=== PATIENT | male | born 1980 | race Caucasian/White ===

== ENCOUNTER 2018-06-07 09:45 | Inpatient (IN) | payer BC ==
--- NOTE | 2018-06-07 11:17 | ED ---
General Adult HPI - General Chief complaint: Altered Mental Status Stated complaint: EPS eval Time Seen by Provider: 06/07/18 10:00 Source: patient, RN notes reviewed Mode of arrival: ambulatory Limitations: no limitations - History of Present Illness Initial comments: This is a 38-year-old male presents emergency Department complaining of being more anxious lately. Patient states she's also thinking of hurting himself even though he doesn't want to he does think about taking pills or driving his car into a tree. Patient's not sure why that it feels to because he doesn't want to but he does feel as though somehow hurting himself might be better. Patient denies any thoughts of homicide. Patient states he's coming in because he's got 3 kids and he doesn't want to get to the point where he wants to harm himself. Patient states and 15 he did try to commit suicide by taking pills. Patient denies any drinking or drug use today. Patient denies any physical complaints today. - Related Data Home Medications Medication Instructions Recorded Confirmed buPROPion HCL [Wellbutrin XL] 150 mg PO BID 06/07/18 06/07/18 busPIRone HCl [Buspar] 10 mg PO TID 06/07/18 06/07/18 Allergies Allergy/AdvReac Type Severity Reaction Status Date / Time Penicillins Allergy Unknown Verified 06/07/18 10:47 Review of Systems ROS Statement: Those systems with pertinent positive or pertinent negative responses have been documented in the HPI. ROS Other: All systems not noted in ROS Statement are negative. Past Medical History Past Medical History: No Reported History History of Any Multi-Drug Resistant Organisms: None Reported Past Surgical History: Orthopedic Surgery Additional Past Surgical History / Comment(s): knee Past Psychological History: Depression Smoking Status: Current every day smoker Past Alcohol Use History: Occasional Past Drug Use History: Marijuana General Exam - General Exam Comments Initial Comments: GENERAL: Patient is well-developed and well-nourished. Patient is nontoxic and well- hydrated and is in no acute distress. ENT: Neck is soft and supple. Neck has full range of motion without eliciting any pain. EYES: The sclera were anicteric and conjunctiva were pink and moist. Extraocular movements were intact and pupils were equal round and reactive to light. Eyelids were unremarkable. PULMONARY: Unlabored respirations. Good breath sounds bilaterally. No audible rales rhonchi or wheezing was noted. CARDIOVASCULAR: There is a regular rate and rhythm without any murmurs gallops or rubs. ABDOMEN: Soft and nontender with normal bowel sounds. SKIN: Skin is clear with no lesions or rashes and otherwise unremarkable. NEUROLOGIC: Patient is alert and oriented x3. Cranial nerves II through XII are grossly intact. Motor and sensory are also intact. Normal speech, volume and content. Symmetrical smile. MUSCULOSKELETAL: Normal extremities with adequate strength and full range of motion. PSYCHIATRIC: Patient does admit that he wants to harm himself and is worrisome to become suicidal. Patient states been very depressed lately and extremely anxious. Patient states his BuSpar is helping him with his anxiety but not helping him with his depression. Limitations: no limitations Course Vital Signs 06/07/18 09:55 Temperature 98.4 F Pulse Rate 78 Respiratory 18 Rate Blood Pressure 127/79 O2 Sat by Pulse 100 Oximetry Medical Decision Making - Medical Decision Making EPS evaluated the patient decided to admit the patient for depression . Disposition Clinical Impression: Depression, Thoughts of self harm Disposition: ADMITTED IP TO THIS HOSP Referrals: Pierre Goetz MD [Primary Care Provider] - 1-2 days Time of Disposition: 14:16
[2018-06-07 14:49] LABS: Amphetamine Screen,Urine Not Detected (NotDetected); Benzodiazepines Screen,Urine Not Detected (NotDetected); Cocaine Screen,Urine Not Detected (NotDetected); Methadone Screen, Urine Not Detected (NotDetected); Opiate Screen,Urine Not Detected (NotDetected); Phencyclidine Screen,Urine Not Detected (NotDetected); Tricyclic Antidepressant,Urine Not Detected (NotDetected); Urn Cannabinoid Scrn Detected (NotDetected)
[2018-06-07 14:50] LABS: Barbiturate Screen,Urine Not Detected (NotDetected); Oxycodone Screen, Urine Not Detected (NotDetected)
[2018-06-07] MEDS ORDERED: LORazepam 1 MG TAB PO PRN (14:56)
[2018-06-07] MEDS ORDERED: MAGNESIUM HYDROXIDE 2,400 MG/10 ML CUP PO PRN (14:56)
[2018-06-07] MEDS ORDERED: ACETAMINOPHEN TAB 325 MG TAB PO PRN (14:56)
[2018-06-07] MEDS ORDERED: MAG HYDROX/AL HYDROX/SIMETH 30 ML CUP PO PRN (14:56)
[2018-06-07] MEDS ORDERED: ZIPRASIDONE 20 MG VIAL IM PRN (14:56)
[2018-06-07] MEDS ORDERED: LORazepam 2 MG/ML INJ IM PRN (14:59)
[2018-06-07] MEDS: NICOTINE 14MG/24HR PATCH TRANSDERM SCH (15:56)
[2018-06-07] MEDS: busPIRone HCl 10 MG TAB PO SCH ×2 (15:56→19:54)
[2018-06-07 17:11] VITALS: BMI 22.4
[2018-06-07] MEDS: buPROPion XL 150 MG TAB.ER.24H PO SCH (19:54)
[2018-06-08] MEDS: busPIRone HCl 10 MG TAB PO SCH (09:00)
[2018-06-08] MEDS: buPROPion XL 150 MG TAB.ER.24H PO SCH (09:00)
[2018-06-08] MEDS: NICOTINE 14MG/24HR PATCH TRANSDERM SCH (09:01)
[2018-06-08 09:47] LABS: ALT 33 U/L (21-72); AST 26 U/L (17-59); Albumin 5.3 g/dL (3.5-5.0); Alkaline Phosphatase 59 U/L (38-126); Anion Gap 10 mmol/L; Blood Urea Nitrogen 19 mg/dL (9-20); Calcium 10.6 mg/dL (8.4-10.2); Carbon Dioxide 29 mmol/L (22-30); Chloride 103 mmol/L (98-107); Cholesterol 250 mg/dL (<200); Glucose 121 mg/dL (74-99); HDL Cholesterol 52 mg/dL (40-60); LDL Cholesterol,Calculated 181 mg/dL (0-99); Sodium 142 mmol/L (137-145); Total Bilirubin 1.5 mg/dL (0.2-1.3); Total Protein 8.5 g/dL (6.3-8.2); Triglycerides 86 mg/dL (<150)
[2018-06-08 10:46] LABS: Basophils % (A) 1 %; Eosinophils # (A) 0.2 k/uL (0-0.7); Eosinophils % (A) 3 %; HGB 17.7 gm/dL (13.0-17.5); Lymphocytes % (A) 26 %; MCH 31.4 pg (25.0-35.0); MCV 92.3 fL (80.0-100.0); Mean Platelet Volume 6.7; Monocytes # (A) 0.6 k/uL (0-1.0); Monocytes % (A) 7 %; Neutrophils # (A) 4.7 k/uL (1.3-7.7); Neutrophils % (A) 61 %; Platelet Count 279 k/uL (150-450); RBC 5.63 m/uL (4.30-5.90); RDW 13.8 % (11.5-15.5); WBC 7.7 k/uL (3.8-10.6)
--- NOTE | 2018-06-08 11:14 | CONS ---
CONSULTATION CHIEF COMPLAINT: Major depression. HISTORY OF PRESENT ILLNESS: This is another admission for this 38-year-old white male. He has had some problems with depression. It started to get gradually worse and he began to have suicidal thoughts and came to the emergency room. He did not try to hurt himself. Has otherwise been healthy. REVIEW OF SYSTEMS: He has had no headaches, neurologic problems, change in vision or hearing, chest pain, cough, hemoptysis, murmurs, rheumatic fever, hypertension, abdominal pain, nausea, vomiting, hematemesis, melena, hematochezia, jaundice, renal failure, diabetes, etc. PAST MEDICAL HISTORY. FAMILY HISTORY, PERSONAL AND SOCIAL HISTORY: Unremarkable otherwise. He is on Wellbutrin 150 twice a day and is allergic to PENICILLIN. Surgically, he has had hemorrhoidectomy and a procedure on his right knee. He does smoke. PHYSICAL EXAM: Blood pressure 118/68 with a pulse 66, respirations 14. He is afebrile. In general, he appeared to be well developed, well nourished, in no acute distress. Skin color is normal, skin is warm, dry. Lymph nodes are not enlarged. Head, ears, eyes, nose, mouth, and throat were normal. Neck veins are not distended. Thyroid is not enlarged. Chest is clear and cardiac exam is normal. The abdomen is soft, nontender. EXTREMITIES: Normal. Neurologically, he is intact. IMPRESSION: Major depression. RECOMMENDATIONS: None at this time. MMODL / IJN: [id number] /
--- NOTE | 2018-06-08 11:25 | P.HP ---
Psychiatric H&P - . H&P Date: 06/08/18 History & Physical: Allergies Allergy/AdvReac Type Severity Reaction Status Date / Time Penicillins Allergy Unknown Verified 06/07/18 10:47 Vital Signs Temp 97.5 F L 06/08/18 06:46 Pulse 69 06/08/18 06:46 Resp 18 06/08/18 06:46 BP 132/75 06/08/18 06:46 Pulse Ox 99 06/07/18 15:34 Intake & Output 06/07/18 06/08/18 06/08/18 18:59 06:59 18:59 Weight 77.3 kg Laboratory Last Values Sodium 142 mmol/L (137-145) 06/08/18 09:03 Potassium 5.0 mmol/L (3.5-5.1) 06/08/18 09:03 Chloride 103 mmol/L (98-107) 06/08/18 09:03 Carbon Dioxide 29 mmol/L (22-30) 06/08/18 09:03 Anion Gap 10 mmol/L 06/08/18 09:03 BUN 19 mg/dL (9-20) 06/08/18 09:03 Creatinine 0.99 mg/dL (0.66-1.25) 06/08/18 09:03 Est GFR (CKD-EPI)AfAm >90 (>60 ml/min/1.73 sqM) 06/08/18 09:03 Est GFR (CKD-EPI)NonAf >90 (>60 ml/min/1.73 sqM) 06/08/18 09:03 Glucose 121 mg/dL (74-99) H 06/08/18 09:03 Calcium 10.6 mg/dL (8.4-10.2) H 06/08/18 09:03 Total Bilirubin 1.5 mg/dL (0.2-1.3) H 06/08/18 09:03 AST 26 U/L (17-59) 06/08/18 09:03 ALT 33 U/L (21-72) 06/08/18 09:03 Alkaline Phosphatase 59 U/L (38-126) 06/08/18 09:03 Total Protein 8.5 g/dL (6.3-8.2) H 06/08/18 09:03 Albumin 5.3 g/dL (3.5-5.0) H 06/08/18 09:03 Triglycerides 86 mg/dL (<150) 06/08/18 09:03 Cholesterol 250 mg/dL (<200) H 06/08/18 09:03 LDL Cholesterol, Calc 181 mg/dL (0-99) H 06/08/18 09:03 HDL Cholesterol 52 mg/dL (40-60) 06/08/18 09:03 Urine Opiates Screen Not Detected (NotDetected) 06/07/18 14:30 Ur Oxycodone Screen Not Detected (NotDetected) 06/07/18 14:30 Urine Methadone Screen Not Detected (NotDetected) 06/07/18 14:30 Ur Propoxyphene Screen Not Detected (NotDetected) 06/07/18 14:30 Ur Barbiturates Screen Not Detected (NotDetected) 06/07/18 14:30 U Tricyclic Antidepress Not Detected (NotDetected) 06/07/18 14:30 Ur Phencyclidine Scrn Not Detected (NotDetected) 06/07/18 14:30 Ur Amphetamines Screen Not Detected (NotDetected) 06/07/18 14:30 U Methamphetamines Scrn Not Detected (NotDetected) 06/07/18 14:30 U Benzodiazepines Scrn Not Detected (NotDetected) 06/07/18 14:30 Urine Cocaine Screen Not Detected (NotDetected) 06/07/18 14:30 U Marijuana (THC) Screen Detected (NotDetected) H 06/07/18 14:30 Assessment and Plan Assessment: This is a 38-year-old male presents emergency Department complaining of being more anxious lately. Patient states she's also thinking of hurting himself even though he doesn't want to he does think about taking pills or driving his car into a tree. Patient's not sure why that it feels to because he doesn't want to but he does feel as though somehow hurting himself might be better. Patient denies any thoughts of homicide. Patient states he's coming in because he's got 3 kids and he doesn't want to get to the point where he wants to harm himself. Patient states and 15 he did try to commit suicide by taking pills. Patient denies any drinking or drug use today. Patient denies any physical complaints today. mental health eval denies suicidal ideations recently started antidepressants pt states that he is here because he had a panic attack that began around 11am yesterday and slowly built until 2 am and he was worried that without help he would hurt himself. pt states that he took a week off of work and that on Thursday he was "iffy" and starting to grow anxious, but that Thursday he became panicked at the thought of going back to work. pt reports that yesterday he had the thought that he would rather hurt himself than return to work. pt also reports that he has seen a pattern in his symptoms where every 2-3 years he has increased symptoms and poor coping. pt states that he doesn't wish to hurt himself because he has a and children and would not want them to deal with the consequences of his suicide. pt does report that he had not been taking any medications since he did not have a primary care physician until recently due to lack of insurance. pt states that his primary care started him on Wellbutrin last week and that he has also been put on Buspar. pt reports that his Buspar w as at 5mg BID for 10 days and was increased to 10 mg recently so he has only been taking this dosage for the past weekend. pt does state that this seems to help with many anxiety symptoms but that it did not help yesterday. pt reports that he had previously attempted suicide by overdose when he was 19. pt states that he went to [facility] and had his stomach pumped, but that he was never admitted to a mental health facility for this attempt. pt denies current suicidal ideation but does report that he was concerned he might harm himself if he does not get help for his anxiety as he believes that his self- harming thoughts are tied to increased anxiety. pt does not have a plan and reports that he also did not have a plan yesterday when he had suicidal ideation. pt does state, "If somebody takes me out, that'd be fine." pt reports that he has had terrible night sweats, but that he has not been experiencing these since beginning the Buspar. pt's states that she has witnessed pt hyperventilating in his sleep at night and that pt does not remember this when she woke him. pt's reports that she has not witnessed this since pt began taking Buspar. pt reports no other sleep symptoms. pt also reports a decrease in his appetite and states that this is due to his increased anxiety.pt reports daily marijuana use and states that this sometimes helps with anxiety but also sometimes "pushes me in the other direction." pt denies any other drug use. pt does have a drink rarely. pt states that his last drink was 1 beer about 3-4 weeks ago and that he drinks maybe 4 times per year. - Related Data Home Medications Medication Instructions Recorded Confirmed buPROPion HCL [Wellbutrin XL] 150 mg PO BID 06/07/18 06/07/18 busPIRone HCl [Buspar] 10 mg PO TID 06/07/18 06/07/18 Allergies Allergy/AdvReac Type Severity Reaction Status Date / Time Penicillins Allergy Unknown Verified 06/07/18 10:47 Past Medical History Past Medical History: No Reported History History of Any Multi-Drug Resistant Organisms: None Reported Past Surgical History: Orthopedic Surgery Additional Past Surgical History / Comment(s): knee Past Psychological History: Depression Smoking Status: Current every day smoker Past Alcohol Use History: Occasional Past Drug Use History: Marijuana Musculoskeletal Examination - Abnormal/Involuntary Movements: [none Strength: [greater than antigravity (greater than/equal to 3/5) in all extremities] Muscle Tone: [no impairment Gait: [grossly normal Station: [grossly normal Mental Status Examination - this is a 38-year-old male with 3 children who came to the hospital due to the fact that he has increased anxiety about work even suicidal thoughts because he felt hopeless and helpless. He was started on Wellbutrin and BuSpar with little to no response. 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 Approximate 4 for 5 months during the winter time he was homeless. He does have an episode when he was a teenager going to [facility] for mental health issues and in his 20s took an overdose but he went to the emergency room they pumped his stomach and had no psychiatric follow-up. Family was extremely holiness. He has younger siblings that live with his father which he has little contact with. General Appearance: [casual, appears stated age Speech/Language: [spontaneous, rapid, expressive, loud, Attitude/Behavior: [cooperative,indifferent] Mood: [ depressed, anxious, fearful, hopelessness Affect: [ labile, blunted constricted Orientation: [time, person, place situation] Thought Content: [wnl, denies delusions, obsessions, phobias, other] Risk Factors: [Has episodic suicidal (ideations, plan), and/or Homicidal (ideations, plan), other] Perception: [wnl, denies hallucinations (auditory, visual, tactile), other] Thought Processes: [ concrete, circumstantial, tangential Concentration/Attention Span: [wnl] [Per observation and interview with the patient] Recent Memory: [wnl 3 out of 3 in 3 minutes] Remote Memory: [wnl] [past events, as related history] Intelligence: [ average] [based on history, based on vocabulary, syntax, grammar, and content] Judgement: [good] [per patient's behavior/history of present illness] Insight: [good [understanding severity of illness/history of present illness] Admitting Diagnosis: [Major depressive disorder severe with suicidal ideations versus bipolar affective disorder type I currently depressed and suicidal] Patient Strengths - Personal Skills: [x] Achievements: [x] Steady employment/financial stability: [x] Housing stability: [x] Able to vocalize needs: [x] Values and traditions: [x] Motivation, determination, readiness for change: [x] Setting and pursuing goals, hopes, dreams, aspirations: [x] Resources - social, interpersonal, monetary: [x] Interpersonal relationships and supports available - family, relatives, friends: [x] Patient Limitations: [medication Initial Plan of Care: [He was admitted in formal voluntary to [address] [place] [address] for suicidal thoughts and ongoing depression. He will be evaluated by medicine, psychiatry, nursing staff, social work and occupational therapy for integration in [facility]. He will be placed on 15 minute checks for safety and usual protocol for the mental health unit. We will be taken off his BuSpar and increase his Wellbutrin to 300 mg in the morning, Lamictal 25 mg by mouth daily at bedtime, Effexor 37.5 mgxr by mouth daily at bedtime. The goal of treatment will be to titrate his Lamictal to 200 mg and his Effexor to 225 mg.] Estimated Length of Stay: [5 days] Initial Discharge Plan: [home, referred to therapist Prognosis: [good] Justification for Inpatient Hospitalization - [ anxiety, depression resulting in significant loss of functioning.] [Dangerous to self need for controlled environment.] [Emotional or behavioral conditions and complications requiring 24 hour medical and nursing care.] [Need for special drug therapy, or other therapeutic program requiring continuous hospitalization.] [Failure of social or occupational functioning.] [Inability to meet basic life and health needs.] (1) Depression Current Visit: Yes Status: Acute Code(s): F32.9 - MAJOR DEPRESSIVE DISORDER, SINGLE EPISODE, UNSPECIFIED SNOMED Code(s): 82054708 Time with Patient: Greater than 30
[2018-06-08 19:08] LABS: Hemoglobin A1C 5.4 % (4.0-6.0)
[2018-06-08] MEDS ORDERED: buPROPion XL 150 MG TAB.ER.24H PO SCH (21:00)
[2018-06-08] MEDS ORDERED: lamoTRIgine 25 MG TAB PO SCH (21:00)
[2018-06-08] MEDS ORDERED: VENLAFAXINE HCL ER 37.5 MG CAP PO SCH (21:00)
[2018-06-09 06:35] VITALS: TEMP 98.1
[2018-06-09] MEDS: NICOTINE 14MG/24HR PATCH TRANSDERM SCH (07:59)
[2018-06-09] MEDS ORDERED: ONDANSETRON 4 MG TAB PO PRN (12:30)
--- NOTE | 2018-06-09 12:37 | P.PN ---
Subjective Progress Note Date: 06/09/18 Principal diagnosis: Major depressive disorder severe with suicidal ideations versus bipolar affective disorder type I currently depressed and suicidal] 06/09/2018: Chart reviewed, discussed with nursing staff medication change in times, discussed in team today regarding disposition and discharge plans. Patient interviewed in office and reflected on medications that were given last night and he will not get his Wellbutrin until 06/10/2018. He will have an increase of his affection Lamictal tonight and discuss that with him in detail. Also discussed possibility with him and discharge on Thursday. Objective - Vital Signs Vital signs: Vital Signs Temp 98.1 F 06/09/18 06:07 Pulse 87 06/09/18 06:07 Resp 14 06/09/18 06:07 BP 120/74 06/09/18 06:07 Pulse Ox 99 06/07/18 15:34 - Labs CBC & Chem 7: 06/08/18 09:03 06/08/18 09:03 Assessment and Plan Assessment: This is a 38-year-old male presents emergency Department complaining of being more anxious lately. Patient states she's also thinking of hurting himself even though he doesn't want to he does think about taking pills or driving his car into a tree. Patient's not sure why that it feels to because he doesn't want to but he does feel as though somehow hurting himself might be better. Patient denies any thoughts of homicide. Patient states he's coming in because he's got 3 kids and he doesn't want to get to the point where he wants to harm himself. Patient states and 15 he did try to commit suicide by taking pills. Patient denies any drinking or drug use today. Patient denies any physical complaints today. mental health eval denies suicidal ideations recently started antidepressants pt states that he is here because he had a panic attack that began around 11am yesterday and slowly built until 2 am and he was worried that without help he would hurt himself. pt states that he took a week off of work and that on Thursday he was "iffy" and starting to grow anxious, but that Thursday he became panicked at the thought of going back to work. pt reports that yesterday he had the thought that he would rather hurt himself than return to work. pt also reports that he has seen a pattern in his symptoms where every 2-3 years he has increased symptoms and poor coping. pt states that he doesn't wish to hurt himself because he has a and children and would not want them to deal with the consequences of his suicide. pt does report that he had not been taking any medications since he did not have a primary care physician until recently due to lack of insurance. pt states that his primary care started him on Wellbutrin last week and that he has also been put on Buspar. pt reports that his Buspar was at 5mg BID for 10 days and was increased to 10 mg recently so he has only been taking this dosage for the past weekend. pt does state that this seems to help with many anxiety symptoms but that it did not help yesterday. pt reports that he had previously attempted suicide by overdose when he was 19. pt states that he went to [facility] and had his stomach pumped, but that he was never admitted to a mental health facility for this attempt. pt denies current suicidal ideation but does report that he was concerned he might harm himself if he does not get help for his anxiety as he believes that his self- harming thoughts are tied to increased anxiety. pt does not have a plan and reports that he also did not have a plan yesterday when he had suicidal ideation. pt does state, "If somebody takes me out, that'd be fine." pt reports that he has had terrible night sweats, but that he has not been experiencing these since beginning the Buspar. pt's states that she has witnessed pt hyperventilating in his sleep at night and that pt does not remember this when she woke him. pt's reports that she has not witnessed this since pt began taking Buspar. pt reports no other sleep symptoms. pt also reports a decrease in his appetite and states that this is due to his increased anxiety.pt reports daily marijuana use and states that this sometimes helps with anxiety but also sometimes "pushes me in the other direction." pt denies any other drug use. pt does have a drink rarely. pt states that his last drink was 1 beer about 3-4 weeks ago and that he drinks maybe 4 times per year. Mental Status Examination - this is a 38-year-old male with 3 children who came to the hospital due to the fact that he has increased anxiety about work even suicidal thoughts because he felt hopeless and helpless. He was started on Wellbutrin and BuSpar with little to no response. 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 Approximate 4 for 5 months during the winter time he was homeless. He does have an episode when he was a teenager going to [facility] health issues and in his 20s took an overdose but he went to the emergency room they pumped his stomach and had no psychiatric follow-up. Family was extremely yazdanism. He has younger siblings that live with his father which he has little contact with. General Appearance: [casual, appears stated age Speech/Language: [spontaneous, rapid, expressive, loud, Attitude/Behavior: [cooperative,indifferent] Mood: [ depressed5 out of 10, anxious6 out of 10, fearful,less hopelessness Affect: [ labile, blunted constricted Orientation: [time, person, place situation] Thought Content: [wnl, denies delusions, obsessions, phobias, other] Risk Factors: [remains episodic suicidal (ideations, plan), and/or Homicidal (ideations, plan), other] Perception: [wnl, denies hallucinations (auditory, visual, tactile), other] Thought Processes: [ concrete, circumstantial, tangential Concentration/Attention Span: [wnl] [Per observation and interview with the patient] Recent Memory: [wnl 3 out of 3 in 3 minutes] Remote Memory: [wnl] [past events, as related history] Intelligence: [ average] [based on history, based on vocabulary, syntax, grammar, and content] Judgement: [good] [per patient's behavior/history of present illness] Insight: [good [understanding severity of illness/history of present illness] Admitting Diagnosis: [Major depressive disorder severe with suicidal ideations versus bipolar affective disorder type I currently depressed and suicidal] Patient Limitations: [medication Initial Plan of Care: [He was admitted in formal voluntary to [address] [place] [address] for suicidal thoughts and ongoing depression. He will be evaluated by medicine, psychiatry, nursing staff, social work and occupational therapy for integration in [facility]. He will be placed on 15 minute checks for safety and usual protocol for the mental health unit. We will be taken off his BuSpar and increase his Wellbutrin to 300 mg in the morning, Lamictal 25 mg by mouth daily at bedtime, Effexor 37.5 mgxr by mouth daily at bedtime. The goal of treatment will be to titrate his Lamictal to 200 mg and his Effexor to 225 mg.] (1) Depression Current Visit: Yes Status: Acute Code(s): F32.9 - MAJOR DEPRESSIVE DISORDER, SINGLE EPISODE, UNSPECIFIED SNOMED Code(s): 92586368 Plan: Wellbutrin 300 mg XL will be given on 06/10/2018 since was given by mistake last night at 2100 hrs. He will have an increase of Effexor 75 mg and Lamictal to 50 mg by mouth daily at bedtime. He remains on 15 minute checks and expected to integrated in [facility]. Time with Patient: Less than 30
[2018-06-09 20:32] VITALS: RESP 16
[2018-06-09] MEDS ORDERED: lamoTRIgine 25 MG TAB PO SCH (21:00)
[2018-06-09] MEDS ORDERED: VENLAFAXINE HCL ER 75 MG CAP PO SCH (21:00)
[2018-06-10 07:09] VITALS: BP 131/75; PULSE 70
[2018-06-10] MEDS: NICOTINE 14MG/24HR PATCH TRANSDERM SCH (08:47)
[2018-06-10] MEDS ORDERED: buPROPion XL 300 MG TAB.ER.24H PO SCH (09:00)
--- NOTE | 2018-06-10 12:05 | P.DS ---
Providers Date of admission: 06/07/18 14:43 Expected date of discharge: 06/10/18 Attending physician: Ozzie Amor DO Consults: 06/07/18 14:56 Consult Physician Routine Consulting Provider: Pierre Goetz Consult Reason/Comments: H&P and medical Do you want consulting provider notified?: Yes Primary care physician: Pierre Goetz - Discharge Diagnosis(es) (1) Depression Allergies Allergy/AdvReac Type Severity Reaction Status Date / Time Penicillins Allergy Unknown Verified 06/07/18 10:47 Vital Signs Temp 97.5 F L 06/08/18 06:46 Pulse 69 06/08/18 06:46 Resp 18 06/08/18 06:46 BP 132/75 06/08/18 06:46 Pulse Ox 99 06/07/18 15:34 Intake & Output 06/07/18 06/08/18 06/08/18 18:59 06:59 18:59 Weight 77.3 kg Laboratory Last Values Sodium 142 mmol/L (137-145) 06/08/18 09:03 Potassium 5.0 mmol/L (3.5-5.1) 06/08/18 09:03 Chloride 103 mmol/L (98-107) 06/08/18 09:03 Carbon Dioxide 29 mmol/L (22-30) 06/08/18 09:03 Anion Gap 10 mmol/L 06/08/18 09:03 BUN 19 mg/dL (9-20) 06/08/18 09:03 Creatinine 0.99 mg/dL (0.66-1.25) 06/08/18 09:03 Est GFR (CKD-EPI)AfAm >90 (>60 ml/min/1.73 sqM) 06/08/18 09:03 Est GFR (CKD-EPI)NonAf >90 (>60 ml/min/1.73 sqM) 06/08/18 09:03 Glucose 121 mg/dL (74-99) H 06/08/18 09:03 Calcium 10.6 mg/dL (8.4-10.2) H 06/08/18 09:03 Total Bilirubin 1.5 mg/dL (0.2-1.3) H 06/08/18 09:03 AST 26 U/L (17-59) 06/08/18 09:03 ALT 33 U/L (21-72) 06/08/18 09:03 Alkaline Phosphatase 59 U/L (38-126) 06/08/18 09:03 Total Protein 8.5 g/dL (6.3-8.2) H 06/08/18 09:03 Albumin 5.3 g/dL (3.5-5.0) H 06/08/18 09:03 Triglycerides 86 mg/dL (<150) 06/08/18 09:03 Cholesterol 250 mg/dL (<200) H 06/08/18 09:03 LDL Cholesterol, Calc 181 mg/dL (0-99) H 06/08/18 09:03 HDL Cholesterol 52 mg/dL (40-60) 06/08/18 09:03 Urine Opiates Screen Not Detected (NotDetected) 06/07/18 14:30 Ur Oxycodone Screen Not Detected (NotDetected) 06/07/18 14:30 Urine Methadone Screen Not Detected (NotDetected) 06/07/18 14:30 Ur Propoxyphene Screen Not Detected (NotDetected) 06/07/18 14:30 Ur Barbiturates Screen Not Detected (NotDetected) 06/07/18 14:30 U Tricyclic Antidepress Not Detected (NotDetected) 06/07/18 14:30 Ur Phencyclidine Scrn Not Detected (NotDetected) 06/07/18 14:30 Ur Amphetamines Screen Not Detected (NotDetected) 06/07/18 14:30 U Methamphetamines Scrn Not Detected (NotDetected) 06/07/18 14:30 U Benzodiazepines Scrn Not Detected (NotDetected) 06/07/18 14:30 Urine Cocaine Screen Not Detected (NotDetected) 06/07/18 14:30 U Marijuana (THC) Screen Detected (NotDetected) H 06/07/18 14:30 Assessment and Plan Assessment: This is a 38-year-old male presents emergency Department complaining of being more anxious lately. Patient states she's also thinking of hurting himself even though he doesn't want to he does think about taking pills or driving his car into a tree. Patient's not sure why that it feels to because he doesn't want to but he does feel as though somehow hurting himself might be better. Patient denies any thoughts of homicide. Patient states he's coming in because he's got 3 kids and he doesn't want to get to the point where he wants to harm himself. Patient states and 15 he did try to commit suicide by taking pills. Patient denies any drinking or drug use today. Patient denies any physical complaints today. mental health eval denies suicidal ideations recently started antidepressants pt states that he is here because he had a panic attack that began around 11am yesterday and slowly built until 2 am and he was worried that without help he would hurt himself. pt states that he took a week off of work and that on Thursday he was "iffy" and starting to grow anxious, but that Thursday he became panicked at the thought of going back to work. pt reports that yesterday he had the thought that he would rather hurt himself than return to work. pt also reports that he has seen a pattern in his symptoms where every 2-3 years he has increased symptoms and poor coping. pt states that he doesn't wish to hurt himself because he has a and children and would not want them to deal with the consequences of his suicide. pt does report that he had not been taking any medications since he did not have a primary care physician until recently due to lack of insurance. pt states that his primary care started him on Wellbutrin last week and that he has also been put on Buspar. pt reports that his Buspar was at 5mg BID for 10 days and was increased to 10 mg recently so he has only been taking this dosage for the past weekend. pt does state that this seems to help with many anxiety symptoms but that it did not help yesterday. pt reports that he had previously attempted suicide by overdose when he was 19. pt states that he went to [facility] and had his stomach pumped, but that he was never admitted to a mental health facility for this attempt. pt denies current suicidal ideation but does report that he was concerned he might harm himself if he does not get help for his anxiety as he believes that his self- harming thoughts are tied to increased anxiety. pt does not have a plan and reports that he also did not have a plan yesterday when he had suicidal ideation. pt does state, "If somebody takes me out, that'd be fine." pt reports that he has had terrible night sweats, but that he has not been experiencing these since beginning the Buspar. pt's states that she has witnessed pt hyperventilating in his sleep at night and that pt does not remember this when she woke him. pt's reports that she has not witnessed this since pt began taking Buspar. pt reports no other sleep symptoms. pt also reports a decrease in his appetite and states that this is due to his increased anxiety.pt reports daily marijuana use and states that this sometimes helps with anxiety but also sometimes "pushes me in the other direction." pt denies any other drug use. pt does have a drink rarely. pt states that his last drink was 1 beer about 3-4 weeks ago and that he drinks maybe 4 times per year. - Related Data Home Medications Medication Instructions Recorded Confirmed buPROPion HCL [Wellbutrin XL] 150 mg PO BID 06/07/18 06/07/18 busPIRone HCl [Buspar] 10 mg PO TID 06/07/18 06/07/18 Allergies Allergy/AdvReac Type Severity Reaction Status Date / Time Penicillins Allergy Unknown Verified 06/07/18 10:47 Past Medical History Past Medical History: No Reported History History of Any Multi-Drug Resistant Organisms: None Reported Past Surgical History: Orthopedic Surgery Additional Past Surgical History / Comment(s): knee Past Psychological History: Depression Smoking Status: Current every day smoker Past Alcohol Use History: Occasional Past Drug Use History: Marijuana Musculoskeletal Examination - Abnormal/Involuntary Movements: [none Strength: [greater than antigravity (greater than/equal to 3/5) in all extremities] Muscle Tone: [no impairment Gait: [grossly normal Station: [grossly normal Mental Status Examination - this is a 38-year-old male with 3 children who came to the hospital due to the fact that he has increased anxiety about work even suicidal thoughts because he felt hopeless and helpless. He was started on Wellbutrin and BuSpar with little to no response. 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 Approximate 4 for 5 months during the winter time he was homeless. He does have an episode when he was a teenager going to [facility] for mental health issues and in his 20s took an overdose but he went to the emergency room they pumped his stomach and had no psychiatric follow-up. Family was extremely latter-day. He has younger siblings that live with his father which he has little contact with. General Appearance: [casual, appears stated age Speech/Language: [spontaneous, rapid, expressive, loud, Attitude/Behavior: [cooperative,indifferent] Mood: [ depressed, anxious, fearful, hopelessness Affect: [ labile, blunted constricted Orientation: [time, person, place situation] Thought Content: [wnl, denies delusions, obsessions, phobias, other] Risk Factors: [Has episodic suicidal (ideations, plan), and/or Homicidal (ideations, plan), other] Perception: [wnl, denies hallucinations (auditory, visual, tactile), other] Thought Processes: [ concrete, circumstantial, tangential Concentration/Attention Span: [wnl] [Per observation and interview with the patient] Recent Memory: [wnl 3 out of 3 in 3 minutes] Remote Memory: [wnl] [past events, as related history] Intelligence: [ average] [based on history, based on vocabulary, syntax, grammar, and content] Judgement: [good] [per patient's behavior/history of present illness] Insight: [good [understanding severity of illness/history of present illness] Admitting Diagnosis: [Major depressive disorder severe with suicidal ideation Current Visit: Yes Status: Acute Priority: Low Hospital Course: Plan of Care: [He was admitted in formal voluntary to [address] [place] [address] for suicidal thoughts and ongoing depression. He will be evaluated by medicine, psychiatry, nursing staff, social work and occupational therapy for integration in [facility] therapeutic environment. He will be placed on 15 minute checks for safety and usual protocol for the mental health unit. We will be taken off his BuSpar and increase his Wellbutrin to 300 mg in the morning, Lamictal 25 mg by mouth daily at bedtime, Effexor 37.5 mgxr by mouth daily at bedtime. The goal of treatment will be to titrate his Lamictal to 200 mg and his Effexor to 225 mg.] On an outpatient basis the titration of his Effexor from 75 mg to 225milligrams XR should occur over the next month as well as titration of this Lamictal from 50 mg on a weekly basis to 200 mg from end dose. Mental status examination the time of discharge: The patient presents alert, pleasant, and cooperative. There calmly seated without any agitated behavior. [he] reports that [his] mood is good. Affect is congruent and euthymic. [he] deny having any suicidal or homicidal ideation intent or plan. [he] denies any auditory or visual hallucinations. There is no evidence of any delusional thought content. [his] thought process is linear and goal-directed. [his] speech is fluent and nonpressured. [his] memory and concentration is grossly intact for the purposes of this session. Patient Condition at Discharge: Stable Plan - Discharge Summary Discharge Rx Participant: Yes New Discharge Prescriptions: New Venlafaxine HCl ER [Effexor XR] 75 mg PO HS 30 Days #30 cap.er.24h Nicotine 14Mg/24Hr Patch [Habitrol] 1 patch TRANSDERM DAILY 30 Days #30 patch lamoTRIgine [LaMICtal] 50 mg PO 2100 30 Days #60 tab buPROPion XL [Wellbutrin XL] 300 mg PO DAILY 30 Days #30 tab.er.24h Discontinued busPIRone HCl [Buspar] 10 mg PO TID buPROPion HCL [Wellbutrin XL] 150 mg PO BID Discharge Medication List Nicotine 14Mg/24Hr Patch [Habitrol] 1 patch TRANSDERM DAILY 30 Days #30 patch 06/10/18 [Rx] Venlafaxine HCl ER [Effexor XR] 75 mg PO HS 30 Days #30 cap.er.24h 06/10/18 [Rx] buPROPion XL [Wellbutrin XL] 300 mg PO DAILY 30 Days #30 tab.er.24h 06/10/18 [Rx] lamoTRIgine [LaMICtal] 50 mg PO 2100 30 Days #60 tab 06/10/18 [Rx] Follow up Appointment(s)/Referral(s): Lola Pirindola [facility] [place] [Outside] - 1 Week (Lola Pirindola Counseling 06/16/18 at 11 am Leonor Mcmanus pt to arrive 15-20 early or go to [employer] forms tab in the top right corner and fill out the paper work there.) Pierre Goetz MD [Primary Care Provider] - 1-2 days Patient Instructions/Handouts: Depression (DC), Help Prevent Suicide (DC), Suicide Prevention (DC) Activity/Diet/Wound Care/Special Instructions: Activity and diet as tolerated. No guns or weapons in the home. Refrain from alcohol and drugs not prescribed by physician. Take all medications as prescribed. Attend all your follow up appointments as scheduled. If in need of medication refills, go to your primary care physician, or go to your Psychiatric provider. If in crisis please call , or go the nearest ER. Discharge Disposition: HOME SELF-CARE
== END 2018-06-10 14:30 | disposition home or self-care (01) | DRG 885 ==
LOC: EC 09:45 → 3MHU 14:43
PROVIDERS: ADMIT Psychiatry & Neurology Psychiatry; ATTEND Psychiatry & Neurology Psychiatry
DX: F32.2 Major depressive disorder, single episode, severe without psychotic features (principal); R45.851 Suicidal ideations; F41.0 Panic disorder [episodic paroxysmal anxiety]; F17.200 Nicotine dependence, unspecified, uncomplicated; F12.90 Cannabis use, unspecified, uncomplicated; Z79.899 Other long term (current) drug therapy; Z91.5 Personal history of self-harm; Z88.0 Allergy status to penicillin
CPT/HCPCS: 80053; 80061; 80306; 82075; 83036; 84443; 85025; 99285

== ENCOUNTER 2022-08-05 07:13 | Emergency (ER) | payer BC, OTHER ==
[2022-08-05] MEDS ORDERED: SODIUM CHLORIDE 0.9% 1,000 ML IV STA (07:39)
--- NOTE | 2022-08-05 07:58 | ED ---
General Adult HPI - General Chief complaint: Syncope Stated complaint: Dizziness Time Seen by Provider: 08/05/22 07:32 Source: patient, RN notes reviewed, old records reviewed Mode of arrival: ambulatory - History of Present Illness Initial comments: 42 -year-old male presenting for evaluation of lightheadedness and syncopal episode. Patient states that for the past several days he has not felt well. He's been somewhat fatigued and lightheaded. He denies focal numbness or weakness. He was in the shower this morning and had passed out. Denies significant injury. Denies current chest pain. Denies episodes of vomiting or diarrhea. No fever. - Related Data Home Medications Medication Instructions Recorded Confirmed Omeprazole [PriLOSEC] 20 mg PO HS 08/05/22 08/05/22 Allergies Allergy/AdvReac Type Severity Reaction Status Date / Time amoxicillin Allergy Anaphylaxis Verified 08/05/22 11:04 Penicillins Allergy Anaphylaxis Verified 08/05/22 11:04 Review of Systems ROS Statement: Those systems with pertinent positive or pertinent negative responses have been documented in the HPI. ROS Other: All systems not noted in ROS Statement are negative. Past Medical History Past Medical History: GERD/Reflux History of Any Multi-Drug Resistant Organisms: None Reported Past Surgical History: Orthopedic Surgery Additional Past Surgical History / Comment(s): knee Past Psychological History: Depression Smoking Status: Vaper Past Alcohol Use History: Occasional Past Drug Use History: Marijuana General Exam General appearance: alert, in no apparent distress Head exam: Present: atraumatic, normocephalic Eye exam: Present: normal appearance, PERRL ENT exam: Present: normal exam Neck exam: Present: normal inspection. Absent: tenderness, meningismus Respiratory exam: Present: normal lung sounds bilaterally. Absent: respiratory distress, wheezes Cardiovascular Exam: Present: regular rate, normal rhythm GI/Abdominal exam: Present: soft. Absent: distended, tenderness, guarding Extremities exam: Present: normal inspection, normal capillary refill. Absent: pedal edema Neurological exam: Present: alert, oriented X3. Absent: CN II-XII intact, motor sensory deficit Psychiatric exam: Present: normal affect, normal mood Skin exam: Present: warm, dry, intact. Absent: cyanosis, diaphoretic Course Vital Signs 08/05/22 08/05/22 07:15 11:48 Temperature 98.2 F 98.5 F Pulse Rate 61 65 Respiratory 18 17 Rate Blood Pressure 118/76 123/81 O2 Sat by Pulse 99 99 Oximetry Medical Decision Making - Medical Decision Making Was pt. sent in by a medical professional or institution (GABRIELLE Forbes, CURB MACHINE OPERATOR, urgent care, hospital, or half-way...) When possible be specific @ -[No] Did you speak to anyone other than the patient for history (EMS, parent, family, police, friend...)? What history was obtained from this source @ -[No] Did you review nursing and triage notes (agree or disagree)? Why? @ -[I reviewed and agree with nursing and triage notes] Were old charts reviewed (outside hosp., previous admission, EMS record, old EKG, old radiological studies, urgent care reports/EKG's, half-way records)? Report findings @ -[No old charts were reviewed] Differential Diagnosis (chest pain, altered mental status, abdominal pain women, abdominal pain men, vaginal bleeding, weakness, fever, dyspnea, syncope, headache, dizziness, GI bleed, back pain, seizure, CVA, palpatations, mental health, musculoskeletal)? @ -Differential Syncope: Valvular disease, hypertrophic cardiomyopathy, pulmonary embolism, tamponade, tachycardia, bradycardia, MS, hypovolemia, hemorrhage, dissection, anemia, intracranial hemorrhage, seizure, hypoglycemia, carbon monoxide poisoning, this is not meant to be an all-inclusive list. EKG interpreted by me (3pts min.). @ -[Sinus rhythm, incomplete right bundle-branch block, early repolarization with ST segment elevation which is diffuse. Ventricular rate is 62, NJ interval 180, QRS duration 114, QTC 385 X-rays interpreted by me (1pt min.). @ -Negative for acute cardiopulmonary CT interpreted by me (1pt min.). @ -[None done] U/S interpreted by me (1pt. min.). @ -[None done] What testing was considered but not performed or refused? (CT, X-rays, U/S, labs)? Why? @ -[None] What meds were considered but not given or refused? Why? @ -[None] Did you discuss the management of the patient with other professionals (professionals i.e. GABRIELLE Forbes, CURB MACHINE OPERATOR, lab, RT, psych nurse, executive secretary social welfare, special weapons and tactics officer, teacher, first officer, medical case worker)? Give summary @ -Dr. Elder who is able to review his EKG, recommends serial cardiac enzymes. Was smoking cessation discussed for >3mins.? @ -[No] Was critical care preformed (if so, how long)? @ -[No] Were there social determinants of health that impacted care today? How? (Homelessness, low income, unemployed, alcoholism, drug addiction, transportation, low edu. Level, literacy, decrease access to med. care, longterm, rehab)? @ -[No] Was there de-escalation of care discussed even if they declined (Discuss DNR or withdrawal of care, Hospice)? DNR status @ -[No] What co-morbidities impacted this encounter? (DM, HTN, Smoking, COPD, CAD, Cancer, CVA, ARF, Chemo, Hep., AIDS, mental health diagnosis, sleep apnea, morbid obesity)? @ -[None] Was patient admitted / discharged? Hospital course, mention meds given and route, prescriptions, significant lab abnormalities, going to OR and other pertinent info. @ -42-year-old male with lightheadedness and syncope. Patient is in sinus rhythm with early repolarization, no old EKG for comparison. Chest x-ray is clear. He has normal CBC, normal CMP, negative troponin x 3 negative viral panels. Vitals remained stable in the emergency department. He is instructed on maintaining hydration and he will follow-up with his primary care physician. Strict return parameters discussed. Undiagnosed new problem with uncertain prognosis? @ -[No] Drug Therapy requiring intensive monitoring for toxicity (Heparin, Nitro, Insulin, Cardizem)? @ -[No] Were any procedures done? @ -[No] Diagnosis/symptom? @ -[Syncope Acute, or Chronic, or Acute on Chronic? @ -[Acute Uncomplicated (without systemic symptoms) or Complicated (systemic symptoms)? @ -[default] Side effects of treatment? @ -[No] Exacerbation, Progression, or Severe Exacerbation? @ -[No] Poses a threat to life or bodily function? How? (Chest pain, USA, MS, pneumonia, PE, COPD, DKA, ARF, appy, cholecystitis, CVA, Diverticulitis, Homicidal, Suicidal, threat to staff... and all critical care pts) @ -[Moderate risk, syncope - Lab Data Result diagrams: 08/05/22 07:53 08/05/22 07:53 Lab Results 08/05/22 08/05/22 08/05/22 Range/Units 07:53 07:53 07:53 WBC 6.2 (3.8-10.6) k/uL RBC 5.11 (4.30-5.90) m/uL Hgb 15.6 (13.0-17.5) gm/dL Hct 46.0 (39.0-53.0) % MCV 90.0 (80.0-100.0) fL MCH 30.6 (25.0-35.0) pg MCHC 34.0 (31.0-37.0) g/dL RDW 12.5 (11.5-15.5) % Plt Count 236 (150-450) k/uL MPV 7.0 Neutrophils % 69 % Lymphocytes % 19 % Monocytes % 7 % Eosinophils % 4 % Basophils % 0 % Neutrophils # 4.2 (1.3-7.7) k/uL Lymphocytes # 1.2 (1.0-4.8) k/uL Monocytes # 0.4 (0-1.0) k/uL Eosinophils # 0.3 (0-0.7) k/uL Basophils # 0.0 (0-0.2) k/uL PT 10.7 (9.0-12.0) sec INR 1.0 (<1.2) APTT 26.7 (22.0-30.0) sec Sodium (137-145) mmol/L Potassium (3.5-5.1) mmol/L Chloride (98-107) mmol/L Carbon Dioxide (22-30) mmol/L Anion Gap mmol/L BUN (9-20) mg/dL Creatinine (0.66-1.25) mg/dL Est GFR (CKD-EPI)AfAm (>60 ml/min/1.73 sqM) Est GFR (CKD-EPI)NonAf (>60 ml/min/1.73 sqM) Glucose (74-99) mg/dL Calcium (8.4-10.2) mg/dL Magnesium (1.6-2.3) mg/dL Total Bilirubin (0.2-1.3) mg/dL AST (17-59) U/L ALT (4-49) U/L Alkaline Phosphatase (38-126) U/L Troponin I (0.000-0.034) ng/mL Total Protein (6.3-8.2) g/dL Albumin (3.5-5.0) g/dL Urine Color Yellow Urine Appearance Clear (Clear) Urine pH 5.5 (5.0-8.0) Ur Specific Bath 1.019 (1.001-1.035) Urine Protein Negative (Negative) Urine Glucose (UA) Negative (Negative) Urine Ketones Negative (Negative) Urine Blood Negative (Negative) Urine Nitrite Negative (Negative) Urine Bilirubin Negative (Negative) Urine Urobilinogen <2.0 (<2.0) mg/dL Ur Leukocyte Esterase Negative (Negative) Influenza Type A (PCR) (Not Detectd) Influenza Type B (PCR) (Not Detectd) RSV (PCR) (Not Detectd) SARS-CoV-2 (PCR) (Not Detectd) 08/05/22 08/05/22 08/05/22 Range/Units 07:53 07:53 07:53 WBC (3.8-10.6) k/uL RBC (4.30-5.90) m/uL Hgb (13.0-17.5) gm/dL Hct (39.0-53.0) % MCV (80.0-100.0) fL MCH (25.0-35.0) pg MCHC (31.0-37.0) g/dL RDW (11.5-15.5) % Plt Count (150-450) k/uL MPV Neutrophils % % Lymphocytes % % Monocytes % % Eosinophils % % Basophils % % Neutrophils # (1.3-7.7) k/uL Lymphocytes # (1.0-4.8) k/uL Monocytes # (0-1.0) k/uL Eosinophils # (0-0.7) k/uL Basophils # (0-0.2) k/uL PT (9.0-12.0) sec INR (<1.2) APTT (22.0-30.0) sec Sodium 138 (137-145) mmol/L Potassium 4.2 (3.5-5.1) mmol/L Chloride 105 (98-107) mmol/L Carbon Dioxide 26 (22-30) mmol/L Anion Gap 7 mmol/L BUN 21 H (9-20) mg/dL Creatinine 0.66 (0.66-1.25) mg/dL Est GFR (CKD-EPI)AfAm >90 (>60 ml/min/1.73 sqM) Est GFR (CKD-EPI)NonAf >90 (>60 ml/min/1.73 sqM) Glucose 104 H (74-99) mg/dL Calcium 9.2 (8.4-10.2) mg/dL Magnesium 2.0 (1.6-2.3) mg/dL Total Bilirubin 0.6 (0.2-1.3) mg/dL AST 24 (17-59) U/L ALT 19 (4-49) U/L Alkaline Phosphatase 57 (38-126) U/L Troponin I <0.012 (0.000-0.034) ng/mL Total Protein 7.0 (6.3-8.2) g/dL Albumin 4.4 (3.5-5.0) g/dL Urine Color Urine Appearance (Clear) Urine pH (5.0-8.0) Ur Specific Bath (1.001-1.035) Urine Protein (Negative) Urine Glucose (UA) (Negative) Urine Ketones (Negative) Urine Blood (Negative) Urine Nitrite (Negative) Urine Bilirubin (Negative) Urine Urobilinogen (<2.0) mg/dL Ur Leukocyte Esterase (Negative) Influenza Type A (PCR) Not Detected (Not Detectd) Influenza Type B (PCR) Not Detected (Not Detectd) RSV (PCR) Not Detected (Not Detectd) SARS-CoV-2 (PCR) Not Detected (Not Detectd) 08/05/22 08/05/22 Range/Units 11:26 13:47 WBC (3.8-10.6) k/uL RBC (4.30-5.90) m/uL Hgb (13.0-17.5) gm/dL Hct (39.0-53.0) % MCV (80.0-100.0) fL MCH (25.0-35.0) pg MCHC (31.0-37.0) g/dL RDW (11.5-15.5) % Plt Count (150-450) k/uL MPV Neutrophils % % Lymphocytes % % Monocytes % % Eosinophils % % Basophils % % Neutrophils # (1.3-7.7) k/uL Lymphocytes # (1.0-4.8) k/uL Monocytes # (0-1.0) k/uL Eosinophils # (0-0.7) k/uL Basophils # (0-0.2) k/uL PT (9.0-12.0) sec INR (<1.2) APTT (22.0-30.0) sec Sodium (137-145) mmol/L Potassium (3.5-5.1) mmol/L Chloride (98-107) mmol/L Carbon Dioxide (22-30) mmol/L Anion Gap mmol/L BUN (9-20) mg/dL Creatinine (0.66-1.25) mg/dL Est GFR (CKD-EPI)AfAm (>60 ml/min/1.73 sqM) Est GFR (CKD-EPI)NonAf (>60 ml/min/1.73 sqM) Glucose (74-99) mg/dL Calcium (8.4-10.2) mg/dL Magnesium (1.6-2.3) mg/dL Total Bilirubin (0.2-1.3) mg/dL AST (17-59) U/L ALT (4-49) U/L Alkaline Phosphatase (38-126) U/L Troponin I 0.023 <0.012 (0.000-0.034) ng/mL Total Protein (6.3-8.2) g/dL Albumin (3.5-5.0) g/dL Urine Color Urine Appearance (Clear) Urine pH (5.0-8.0) Ur Specific Bath (1.001-1.035) Urine Protein (Negative) Urine Glucose (UA) (Negative) Urine Ketones (Negative) Urine Blood (Negative) Urine Nitrite (Negative) Urine Bilirubin (Negative) Urine Urobilinogen (<2.0) mg/dL Ur Leukocyte Esterase (Negative) Influenza Type A (PCR) (Not Detectd) Influenza Type B (PCR) (Not Detectd) RSV (PCR) (Not Detectd) SARS-CoV-2 (PCR) (Not Detectd) Disposition Clinical Impression: Syncope Disposition: HOME SELF-CARE Condition: Fair Instructions (If sedation given, give patient instructions): Syncope (ED) Is patient prescribed a controlled substance at d/c from ED?: No Referrals: Maurilio Jose MD [Primary Care Provider] - 1-2 days Swapnil Elder DO [STAFF PHYSICIAN] - 1-2 days Time of Disposition: 14:21
[2022-08-05 08:15] LABS: Basophils % (A) 0 %; Eosinophils # (A) 0.3 k/uL (0-0.7); Eosinophils % (A) 4 %; HGB 15.6 gm/dL (13.0-17.5); Lymphocytes # (A) 1.2 k/uL (1.0-4.8); Lymphocytes % (A) 19 %; MCH 30.6 pg (25.0-35.0); Monocytes # (A) 0.4 k/uL (0-1.0); Monocytes % (A) 7 %; Neutrophils # (A) 4.2 k/uL (1.3-7.7); Neutrophils % (A) 69 %; Platelet Count 236 k/uL (150-450); RBC 5.11 m/uL (4.30-5.90); RDW 12.5 % (11.5-15.5); WBC 6.2 k/uL (3.8-10.6)
[2022-08-05 08:34] LABS: Partial Thromboplastin Time 26.7 sec (22.0-30.0); Prothrombin Time 10.7 sec (9.0-12.0)
[2022-08-05 08:36] LABS: ALT 19 U/L (4-49); AST 24 U/L (17-59); African American GFR (CKD) >90 (>60 ml/min/1.73 sqM); Albumin 4.4 g/dL (3.5-5.0); Alkaline Phosphatase 57 U/L (38-126); Anion Gap 7 mmol/L; Blood Urea Nitrogen 21 mg/dL (9-20); Calcium 9.2 mg/dL (8.4-10.2); Carbon Dioxide 26 mmol/L (22-30); Chloride 105 mmol/L (98-107); Glucose 104 mg/dL (74-99); Non-African American GFR(CKD) >90 (>60 ml/min/1.73 sqM); Potassium 4.2 mmol/L (3.5-5.1); Sodium 138 mmol/L (137-145); Total Bilirubin 0.6 mg/dL (0.2-1.3)
--- NOTE | 2022-08-05 08:41 | XR ---
EXAMINATION TYPE: XR chest 2V DATE OF EXAM: 08/05/2022 COMPARISON: NONE TECHNIQUE: PA and lateral views submitted. HISTORY: Syncope FINDINGS: The lungs are clear and there is no pneumothorax, pleural effusion, or focal pneumonia. Heart size normal and no overt failure. Osseous structures intact. Hyperinflation of the lungs correlate for [employer]CH[employer]IC D. IMPRESSION: 1. No acute process.
[2022-08-05 09:55] LABS: Appearance,Urine Clear (Clear); Bilirubin,Urine Negative (Negative); Blood,Urine Negative (Negative); Color,Urine Yellow; Glucose,Urine (UA) Negative (Negative); Ketones,Urine Negative (Negative); Leukocyte Esterase,Urine Negative (Negative); Nitrite,Urine Negative (Negative); PH, Urine 5.5 (5.0-8.0); Protein,Urine Negative (Negative); Specific Gravity,Urine 1.019 (1.001-1.035); Urobilinogen,Urine <2.0 mg/dL (<2.0)
[2022-08-05 11:52] VITALS: TEMP 98.5
[2022-08-05 14:24] VITALS: BP 118/68; PULSE 85; RESP 16
== END 2022-08-05 14:32 | disposition home or self-care (01) ==
LOC: EC 07:13
DX: R55 Syncope and collapse (principal); K21.9 Gastro-esophageal reflux disease without esophagitis; F32.A Depression, unspecified; F17.290 Nicotine dependence, other tobacco product, uncomplicated; F12.90 Cannabis use, unspecified, uncomplicated; Z79.899 Other long term (current) drug therapy; Z88.0 Allergy status to penicillin; Z20.822 Contact with and (suspected) exposure to COVID-19
CPT/HCPCS: 36415; 71046; 80053; 81003; 83735; 84484; 85025; 85610; 85730; 87636; 93005; 96360; 99284

== ENCOUNTER 2022-10-28 06:42 | Day surgery (SDC) | payer OTHER ==
[2022-10-23 14:47] VITALS: BMI 22.4
[2022-10-28] MEDS ORDERED: LIDOCAINE 1% (10MG/ML) FOR IV START INTRADERMA PRN (07:09)
[2022-10-28] MEDS ORDERED: LACTATED RINGERS 1,000 ML IV SCH (07:09)
[2022-10-28 07:18] VITALS: TEMP 97.4
[2022-10-28] MEDS ORDERED: PROPOFOL 10 MG/ML 20 ML VIAL IV ONE (07:29)
[2022-10-28] MEDS ORDERED: LIDOCAINE 2% INJ 20 MG/ML (2 ML VIAL) ONE (07:29)
--- NOTE | 2022-10-28 07:53 | P.PCN ---
Date of Procedure: 10/28/22 Procedure(s) Performed: Brief history: Patient is a pleasant 42-year-old white male scheduled for an elective upper endoscopy as well as colonoscopy as a part of evaluation of GERD and progressive weight loss of 30 pounds in the last 6 months duration Procedure performed: Esophagogastroduodenoscopy with biopsy Colonoscopy with snare polypectomy Preoperative diagnosis: GERD Progressive weight loss Anesthesia: MAC Procedure: After informed consent was obtained from the patient was brought into the en doscopy unit and IV sedation was administered by anesthesia under continuous monitoring. Initially upper endoscopy was done. The Olympus GF 160 video endoscope was inserted inserted into the mouth and esophagus intubated without any difficulty and was gradually advanced into the stomach and duodenum and carefully examined. The bulb and second part of the duodenum appeared normal. Biopsies were done from the duodenum to rule out celiac disease. The scope was then withdrawn into the stomach adequately insufflated with air and upon careful examination the antrum had mild gastritis and biopsies were done from this area. Mucosa of the body, cardia and fundus appeared normal. The scope was then withdrawn into the esophagus. The GE junction was located at 40 cm to the incisors. It appeared regular with no erythema erosions or ulcerations. Rest of the esophagus appeared normal. Patient tolerated the procedure well. At this time the patient continued to remain sedation. Initial digital rectal examination was normal. Olympus CF 160 video colonoscope was then inserted into the rectum and gradually advanced to the cecum without any difficulty. Careful examination was performed as the scope was gradually being withdrawn. The prep was excellent. The cecum, ascending colon, appeared normal. The transverse colon was a 1 cm polyp removed by snare polypectomy. In the sigmoid: At 35 cm from the anal was there was a 1.5 cm pedunculated polyp removed by snare polypectomy. Rest of the transverse colon, descending colon, sigmoid colon and rectum appeared normal. Retroflexion was performed in the rectum and no lesions were noted. Patient tolerated the procedure well. Impression: 1. Upper endoscopy revealed mild antral gastritis 2. Colonoscopy revealed a 1 cm transverse colon polyp and a 1.5 cm pedunculated sigmoid polyp status post snare polypectomy Recommendations: Findings of this examination were discussed with the patient as well as his family. She was advised to follow with the biopsy results. If the biopsy result adenoma he can have a repeat colonoscopy in 3 years.
[2022-10-28 08:26] VITALS: BP 110/70; PULSE 66; RESP 18
== END 2022-10-28 08:43 ==
LOC: ORWHC2ENDO 06:42
PROVIDERS: ATTEND Internal Medicine Gastroenterology
DX: D12.3 Benign neoplasm of transverse colon (principal); K21.9 Gastro-esophageal reflux disease without esophagitis; D12.5 Benign neoplasm of sigmoid colon; F17.290 Nicotine dependence, other tobacco product, uncomplicated; Z88.0 Allergy status to penicillin; Z79.899 Other long term (current) drug therapy; K29.50 Unspecified chronic gastritis without bleeding
CPT/HCPCS: 88305; 45385; 43239; J2704; J2001

== ENCOUNTER 2023-04-29 06:31 | Emergency (ER) | payer OTHER ==
[2023-04-29] MEDS: SODIUM CHLORIDE 0.9% 500 ML 500 ML IV STA (07:04)
[2023-04-29] MEDS: SODIUM CHLORIDE 0.9% 1,000 ML IV STA (07:06)
--- NOTE | 2023-04-29 07:06 | ED ---
Abdominal Pain HPI - General Chief Complaint: Abdominal Pain Stated Complaint: abd pain-possible kidney stone Time Seen by Provider: 04/29/23 06:37 Source: patient, RN notes reviewed Mode of arrival: ambulatory Limitations: no limitations - History of Present Illness Initial Comments: This is a 43-year-old male presents emergency department chief complaint of left flank pain. Patient states a sudden onset a few hours ago. Patient does admit to nausea and vomiting. Patient states nothing makes pain feel better or worse. No history of kidney stones. Patient denies any change in urination or bowel movements. No prior abdominal surgeries. Patient has noted penicillin allergies. Patient denies fevers, chills no sick contacts. - Related Data Home Medications Medication Instructions Recorded Confirmed Omeprazole [PriLOSEC] 20 mg PO HS 08/05/22 10/28/22 Previous Rx's Medication Instructions Recorded Ketorolac [Toradol] 10 mg PO Q8HR #15 tab 04/29/23 Ondansetron Odt [Zofran Odt] 4 mg PO Q8HR PRN #10 tab 04/29/23 Tamsulosin [Flomax] 0.4 mg PO DAILY #7 cap 04/29/23 Allergies Allergy/AdvReac Type Severity Reaction Status Date / Time amoxicillin Allergy Anaphylaxis Verified 04/29/23 06:47 Penicillins Allergy Anaphylaxis Verified 04/29/23 06:47 Review of Systems ROS Statement: Those systems with pertinent positive or pertinent negative responses have been documented in the HPI. ROS Other: All systems not noted in ROS Statement are negative. Past Medical History Past Medical History: GERD/Reflux History of Any Multi-Drug Resistant Organisms: None Reported Past Surgical History: Orthopedic Surgery Additional Past Surgical History / Comment(s): knee colonoscopy 2012 Past Anesthesia/Blood Transfusion Reactions: No Reported Reaction Additional Past Anesthesia/Blood Transfusion Reaction / Comment(s): no blood transfusion Past Psychological History: Depression Smoking Status: Current every day smoker, Vaper General Exam Limitations: no limitations General appearance: alert, in no apparent distress Head exam: Present: atraumatic, normocephalic, normal inspection Eye exam: Present: normal appearance, PERRL, EOMI. Absent: scleral icterus, conjunctival injection, periorbital swelling Neck exam: Present: normal inspection. Absent: tenderness, meningismus, lymphadenopathy Respiratory exam: Present: normal lung sounds bilaterally. Absent: respiratory distress, wheezes, rales, rhonchi, stridor Cardiovascular Exam: Present: regular rate, normal rhythm, normal heart sounds. Absent: systolic murmur, diastolic murmur, rubs, gallop, clicks GI/Abdominal exam: Present: soft, normal bowel sounds. Absent: distended, t enderness, guarding, rebound, rigid Back exam: Present: CVA tenderness (L). Absent: CVA tenderness (R) Course Vital Signs 04/29/23 04/29/23 06:42 08:02 Temperature 97.8 F 97.8 F Pulse Rate 68 62 Respiratory 18 17 Rate Blood Pressure 134/79 113/75 O2 Sat by Pulse 100 100 Oximetry Medical Decision Making - Medical Decision Making Was pt. sent in by a medical professional or institution (GABRIELLE Forbes, HOIST MECH[employer]IC, urgent care, hospital, or longterm...) When possible be specific @ -No Did you speak to anyone other than the patient for history (EMS, parent, family, police, friend...)? What history was obtained from this source @ -No Did you review nursing and triage notes (agree or disagree)? Why? @ -I reviewed and agree with nursing and triage notes Were old charts reviewed (outside hosp., previous admission, EMS record, old EKG, old radiological studies, urgent care reports/EKG's, longterm records)? Report findings @ -No old charts were reviewed Differential Diagnosis (chest pain, altered mental status, abdominal pain women, abdominal pain men, vaginal bleeding, weakness, fever, dyspnea, syncope, headache, dizziness, GI bleed, back pain, seizure, CVA, palpatations, mental health, musculoskeletal)? @ -Differential Abdominal Pain Men: Appendicitis, cholecystitis, diverticulosis, ischemic bowel, pancreatitis, hepatitis, UTI, gastroenteritis, AAA, incarcerated hernia, bowel obstruction, constipation, inflammatory bowel, hepatitis, peptic ulcer disease, splenic infarction, perforated viscus, testicular torsion, this is not meant to be an all-inclusive list EKG interpreted by me (3pts min.). @ -None X-rays interpreted by me (1pt min.). @ -None done CT interpreted by me (1pt min.). @ -CT abdomen pelvis showing left ureteral calculi at the UVJ 2 mm U/S interpreted by me (1pt. min.). @ -None done What testing was considered but not performed or refused? (CT, X-rays, U/S, labs)? Why? @ -None What meds were considered but not given or refused? Why? @ -None Did you discuss the management of the patient with other professionals (reymundo davey imanjit Forbes, PA, HOIST MECHANIC, lab, RT, psych nurse, social sciences department chair, machine erector, teacher, court security officer, vocational case manager)? Give summary @ -No Was smoking cessation discussed for >3mins.? @ -No Was critical care preformed (if so, how long)? @ -No Were there social determinants of health that impacted care today? How? (Homelessness, low income, unemployed, alcoholism, drug addiction, transportation, low edu. Level, literacy, decrease access to med. care, shelter, rehab)? @ -No Was there de-escalation of care discussed even if they declined (Discuss DNR or withdrawal of care, Hospice)? DNR status @ -No What co-morbidities impacted this encounter? (DM, HTN, Smoking, COPD, CAD, Cancer, CVA, ARF, Chemo, Hep., AIDS, mental health diagnosis, sleep apnea, morbid obesity)? @ -None Was patient admitted / discharged? Hospital course, mention meds given and route, prescriptions, significant lab abnormalities, going to OR and other pertinent info. @ -Discharged 43-year-old presented for left flank pain. Patient found to have left renal calculi patient's pain is greatly improved laboratory studies unremarkable patient is discharged with Toradol, Tylenol codeine, Zofran and Flomax. Patient will follow-up with urologist as needed. Undiagnosed new problem with uncertain prognosis? @ -No Drug Therapy requiring intensive monitoring for toxicity (Heparin, Nitro, Insulin, Cardizem)? @ -No Were any procedures done? @ -No Diagnosis/symptom? @ -Left ureter calculi Acute, or Chronic, or Acute on Chronic? @ -Acute Uncomplicated (without systemic symptoms) or Complicated (systemic symptoms)? @ -Uncomplicated Side effects of treatment? @ -No Exacerbation, Progression, or Severe Exacerbation? @ -No Poses a threat to life or bodily function? How? (Chest pain, [place], [place], pneumonia, PE, COPD, DKA, ARF, appy, cholecystitis, CVA, Diverticulitis, Homicidal, Suicidal, threat to staff... and all critical care pts) @ -No - Lab Data Result diagrams: 04/29/23 06:58 04/29/23 06:58 Lab Results 04/29/23 04/29/23 04/29/23 Range/Units 06:58 06:58 06:58 WBC 7.8 (3.8-10.6) k/uL RBC 5.09 (4.30-5.90) m/uL Hgb 16.1 (13.0-17.5) gm/dL Hct 46.7 (39.0-53.0) % MCV 91.8 (80.0-100.0) fL MCH 31.6 (25.0-35.0) pg MCHC 34.4 (31.0-37.0) g/dL RDW 11.9 (11.5-15.5) % Plt Count 286 (150-450) k/uL MPV 6.9 Neutrophils % 47 % Lymphocytes % 41 % Monocytes % 7 % Eosinophils % 3 % Basophils % 1 % Neutrophils # 3.7 (1.3-7.7) k/uL Lymphocytes # 3.2 (1.0-4.8) k/uL Monocytes # 0.5 (0-1.0) k/uL Eosinophils # 0.2 (0-0.7) k/uL Basophils # 0.1 (0-0.2) k/uL Sodium 140 (137-145) mmol/L Potassium 3.6 (3.5-5.1) mmol/L Chloride 104 (98-107) mmol/L Carbon Dioxide 22 (22-30) mmol/L Anion Gap 14 mmol/L BUN 19 (9-20) mg/dL Creatinine 0.91 (0.66-1.25) mg/dL Est GFR (CKD-EPI)AfAm >90 (>60 ml/min/1.73 sqM) Est GFR (CKD-EPI)NonAf >90 (>60 ml/min/1.73 sqM) Glucose 135 H (74-99) mg/dL Calcium 10.2 (8.4-10.2) mg/dL Total Bilirubin 0.9 (0.2-1.3) mg/dL AST 25 (17-59) U/L ALT 16 (4-49) U/L Alkaline Phosphatase 73 (38-126) U/L Total Protein 7.6 (6.3-8.2) g/dL Albumin 5.0 (3.5-5.0) g/dL Lipase 74 (23-300) U/L Urine Color Light Yellow Urine Appearance Cloudy (Clear) Urine pH 7.0 (5.0-8.0) Ur Specific [place] 1.020 (1.001-1.035) Urine Protein Negative (Negative) Urine Glucose (UA) Negative (Negative) Urine Ketones 1+ H (Negative) Urine Blood Moderate H (Negative) Urine Nitrite Negative (Negative) Urine Bilirubin Negative (Negative) Urine Urobilinogen <2.0 (<2.0) mg/dL Ur Leukocyte Esterase Negative (Negative) Urine RBC 40 H (0-5) /hpf Urine WBC 3 (0-5) /hpf Urine Bacteria Rare H (None) /hpf Urine Mucus Rare H (None) /hpf Urine Yeast (Budding) Few H (None) /hpf Disposition Clinical Impression: Left ureteral calculus Disposition: HOME SELF-CARE Condition: Stable Instructions (If sedation given, give patient instructions): Kidney Stones (ED) Additional Instructions: Please return to the Emergency Department if symptoms worsen or any other concerns. Prescriptions: Tamsulosin [Flomax] 0.4 mg PO DAILY #7 cap Ketorolac [Toradol] 10 mg PO Q8HR #15 tab Ondansetron Odt [Zofran Odt] 4 mg PO Q8HR PRN #10 tab PRN Reason: Nausea Is patient prescribed a controlled substance at d/c from ED?: No Referrals: Maurilio Jose MD [Primary Care Provider] - 1-2 days Panchito Jacobson MD [STAFF PHYSICIAN] - 1-2 days Time of Disposition: 08:41
[2023-04-29] MEDS: HYDROmorphone 0.5 MG/0.5 ML SYRINGE IVP STA (07:07)
[2023-04-29] MEDS: KETOROLAC 15 MG/ML 1 ML VIAL IVP STA (07:08)
[2023-04-29] MEDS: ONDANSETRON 4 MG/2 ML VIAL IVP STA (07:08)
[2023-04-29 07:20] LABS: Basophils # (A) 0.1 k/uL (0-0.2); Basophils % (A) 1 %; Eosinophils # (A) 0.2 k/uL (0-0.7); Eosinophils % (A) 3 %; HCT 46.7 % (39.0-53.0); HGB 16.1 gm/dL (13.0-17.5); Lymphocytes # (A) 3.2 k/uL (1.0-4.8); Lymphocytes % (A) 41 %; MCH 31.6 pg (25.0-35.0); MCHC 34.4 g/dL (31.0-37.0); MCV 91.8 fL (80.0-100.0); Mean Platelet Volume 6.9; Monocytes # (A) 0.5 k/uL (0-1.0); Monocytes % (A) 7 %; Neutrophils # (A) 3.7 k/uL (1.3-7.7); Neutrophils % (A) 47 %; Platelet Count 286 k/uL (150-450); RBC 5.09 m/uL (4.30-5.90); RDW 11.9 % (11.5-15.5); WBC 7.8 k/uL (3.8-10.6)
[2023-04-29 07:55] LABS: ALT 16 U/L (4-49); AST 25 U/L (17-59); African American GFR (CKD) >90 (>60 ml/min/1.73 sqM); Alkaline Phosphatase 73 U/L (38-126); Anion Gap 14 mmol/L; Blood Urea Nitrogen 19 mg/dL (9-20); Calcium 10.2 mg/dL (8.4-10.2); Carbon Dioxide 22 mmol/L (22-30); Chloride 104 mmol/L (98-107); Glucose 135 mg/dL (74-99); Lipase 74 U/L (23-300); Non-African American GFR(CKD) >90 (>60 ml/min/1.73 sqM); Potassium 3.6 mmol/L (3.5-5.1); Sodium 140 mmol/L (137-145); Total Bilirubin 0.9 mg/dL (0.2-1.3); Total Protein 7.6 g/dL (6.3-8.2)
--- NOTE | 2023-04-29 08:20 | CT ---
EXAMINATION TYPE: CT abdomen pelvis wo con DATE OF EXAM: 04/29/2023 COMPARISON: None HISTORY: 43-year-old male with Flank pain CT DLP: 532.2 mGycm. Automated exposure control for dose reduction was used. TECHNIQUE: Contiguous axial scanning of the abdomen and pelvis without IV contrast. Coronal and sagit [place] reconstructions performed. FINDINGS: LUNG BASES: No significant abnormality is appreciated. LIVER/GB: No significant abnormality is appreciated. PANCREAS: No significant abnormality is seen. SPLEEN: No significant abnormality is seen. ADRENALS: No significant abnormality is seen. KIDNEYS: No hydronephrosis on either side. No nephrolithiasis. There is a punctate 2 mm density near the region of the left UVJ, refer to axial image 84 and coronal image 46. LYMPH NODES: No significant abnormality is seen. BOWEL: Tiny hiatal hernia. No dilated small bowel, free fluid, free air. Some prominent fluid-filled small bowel loops hanging low in the pelvis probably transient. Mild to moderate stool burden in the right side of the colon. Normal appendix visualized. PELVIS: Bladder is collapsed. Some central prostatic calcifications. No abnormal fluid collection in the pelvis or pelvic lymphadenopathy. OTHER: No significant abnormality is seen. BONES: L4 limbus vertebra. Mild to moderate degenerative disc disease L5-S1. Facet arthropathy lower lumbar spine. IMPRESSION: 1. There is a punctate 2 mm density in the region of the left UVJ. Equivocal between a tiny left-erendira ed distal ureteral stone versus pelvic phlebolith. Clinically correlate. 2. No other nephrolithiasis. No hydronephrosis.
[2023-04-29 08:27] LABS: Appearance,Urine Cloudy (Clear); Bacteria,Urine Rare /hpf; Bilirubin,Urine Negative (Negative); Blood,Urine Moderate (Negative); Budding Yeast,Urine Few /hpf; Color,Urine Light Yellow; Glucose,Urine (UA) Negative (Negative); Ketones,Urine 1+ (Negative); Leukocyte Esterase,Urine Negative (Negative); Mucus,Urine Rare /hpf; Nitrite,Urine Negative (Negative); Protein,Urine Negative (Negative); RBC,Urine 40 /hpf (0-5); Urobilinogen,Urine <2.0 mg/dL (<2.0); WBC,Urine 3 /hpf (0-5)
[2023-04-29] MEDS: ACET/COD 300 MG/30 MG STARTER PACK 6 TAB BTL PO STA (09:03)
[2023-04-29 09:22] VITALS: BP 129/77; PULSE 78; RESP 18; TEMP 98.1
== END 2023-04-29 09:07 | disposition home or self-care (01) ==
LOC: EC 06:31
DX: N20.1 Calculus of ureter (principal); K21.9 Gastro-esophageal reflux disease without esophagitis; Z86.59 Personal history of other mental and behavioral disorders; F17.290 Nicotine dependence, other tobacco product, uncomplicated; Z88.0 Allergy status to penicillin
CPT/HCPCS: 36415; 80053; 83690; 85025; 81001; 74176; 99284; 96374; 96375 ×2; 96361 ×2; J2405; J1885; J1170

== ENCOUNTER → 2023-05-18 | Outpatient (CLI) | payer OTHER ==
[2023-05-19 21:02] LABS: HIV 2 AB Non-Reactive (Non-Reactive); HIV AB P24 Non-Reactive (Non-Reactive); HIV P24 AG Non-Reactive (Non-Reactive)
== END | disposition home or self-care (01) ==
LOC: LABWHC1 15:49
PROVIDERS: ATTEND Internal Medicine Geriatric Medicine
DX: R63.4 Abnormal weight loss (principal)
CPT/HCPCS: 36415; 83835; 86480; 86701; 87390